=== PATIENT | male | born 1960 | race Caucasian/White ===

== ENCOUNTER 2019-01-31 08:06 | Emergency (ER) | payer OTHER ==
[~2019-01-31] VITALS: Ht 187 cm; Wt 91.0 kg
[2019-01-31] MEDS ORDERED: LIDOCAINE 1% INJ 20 ML 20 ML VIAL INJ ONE (09:00)
[2019-01-31] MEDS ORDERED: TETANUS,DIPTH,PERTUSS P/F (BOOSTRIX) 0.5 ML VIAL IM ONE (09:00)
[2019-01-31 09:14] VITALS: BP 127/96
--- NOTE | 2019-01-31 09:16 | ED General ---
General Chief Complaint: Laceration Stated Complaint: LEFT LEG LACERATION Nursing Triage Note: PT AMBULATED TO ROOM 3 PT HAS LAC TO L ANKLE AREA FROM SHARP KNIFE DROPPED AND HIT LEG. PT NOT UPD ON TETNAS Nursing Sepsis Screen: No Definite Risk Source of Information: Patient Exam Limitations: No Limitations History of Present Illness Date Seen by Provider: Jan 31, 2019 Time Seen by Provider: 08:34 Initial Comments This 58-year-old gentleman presents to the emergency room with a laceration injury to the left medial lower leg after dropping a knife. He is not up-to-date on his tetanus immunization. The wound extends into the subcutaneous tissue and is gaping mildly. He does not have significant bleeding at this time. Allergies and Home Medications Allergies Coded Allergies: No Known Drug Allergies (Unverified , 01/31/19) Patient Home Medication List Home Medication List Reviewed: Yes Review of Systems Review of Systems Constitutional: no symptoms reported Musculoskeletal: no symptoms reported Skin: see HPI Psychiatric/Neurological: No Symptoms Reported Past Stxgqkk-Gwxyek-Vaosxp Hx Past Med/Social Hx: Reviewed Nursing Past Med/Soc Hx Patient Social History Alcohol Use: Occasionally Uses Recreational Drug Use: No Smoking Status: Former Smoker Recent Foreign Travel: No Contact w/Someone Who Travel: No Recent Infectious Disease Expo: No Recent Hopitalizations: No Immunizations Up To Date Tetanus Booster (TDap): More than 5yrs Past Medical History Surgeries: Yes Abdominal, Orthopedic Respiratory: No Cardiac: Yes Hypertension Genitourinary: No Gastrointestinal: No Musculoskeletal: Yes (SURGERY ) Endocrine: No HEENT: No Cancer: No Psychosocial: No Physical Exam Vital Signs Vital Signs - First Documented 01/31/19 08:30 Temp 36.9 Pulse 76 Resp 18 B/P (MAP) 127/96 (106) Pulse Ox 94 Capillary Refill : Less Than 3 Seconds Height, Weight, BMI Height: '" Weight: lbs. oz. kg; 26.00 BMI Method: General Appearance: No Apparent Distress, WD/WN HEENT: Normal ENT Inspection Respiratory: Lungs Clear, Normal Breath Sounds Cardiovascular: Regular Rate, Rhythm, No Edema, No Murmur Extremity: Other (1.5 cm laceration on the medial aspect of the left lower leg. 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 as Tested Skin: Normal Color, Warm/Dry, Other (See above) Procedures/Interventions Wound Location: Lower Extremities Wound Length (cm): 1.5 Wound Explored: clean Irrigated w/ Saline (ccs): 300 Betadine Prep?: Yes Anesthesia: 1% Lidocaine Volume Anesthetic (ccs): 4 Suture: Prolene Suture Size: 4-0 Number of Sutures: 2 Sterile Dressing Applied?: Yes Progress/Results/Core Measures Suspected Sepsis Recent Fever Within 48 Hours: No Infection Criteria Present: None New/Unexplained Altered Menta: No Sepsis Screen: No Definite Risk SIRS Temperature: Pulse: 76 Respiratory Rate: 18 Blood Pressure 127 /96 Mean: 106 Results/Orders My Orders Orders - DUANE MARTINEZ MD Lidocaine 1% Inj 20 Ml (Xylocaine 1% Inj (01/31/19 09:00) Dipht,Pertuss(Acell),Tet Adult (Boostrix (01/31/19 09:00) Medications Given in ED Vital Signs/I&O Capillary Refill : Less Than 3 Seconds Blood Pressure Mean: 106 POS Departure Impression Primary Impression: Laceration of left leg Qualified Codes: S81.812A - Laceration without foreign body, left lower leg, initial encounter Disposition: 01 HOME, SELF-CARE Condition: Improved Departure-Patient Inst. Decision time for Depature: 09:00 Patient Instructions: Laceration Repair With Stitches (DC) Add. Discharge Instructions: Keep the wound covered when you're active or in dirty environments. Otherwise, you may leave it open to air. You may remove the dressing when you return home and elevate your leg. If bleeding occurs, apply direct pressure with gauze and elevate for about 15 m inutes. You may shower but do not scrub directly over the sutures and do not submerge until sutures are removed. Return in about 7 days to have sutures removed. You do not need an appointment. Monitor for signs of infection such as increasing redness, increasing swelling, puslike drainage, or fever. All discharge instructions reviewed with patient and/or family. Voiced understa nding. DUANE MARTINEZ MD Jan 31, 2019 09:16 POS
== END 2019-01-31 09:14 | disposition home or self-care (01) ==
LOC: ER 08:08
DX: S81.812A Laceration without foreign body, left lower leg, initial encounter (principal); I10 Essential (primary) hypertension; Z87.891 Personal history of nicotine dependence; W26.0XXA Contact with knife, initial encounter
CPT/HCPCS: 12001; 90471; 90715

== ENCOUNTER 2019-12-17 15:28 | Emergency (ER) | payer OTHER ==
[~2019-12-17] VITALS: Ht 187 cm; Wt 90.0 kg
--- NOTE | 2019-12-17 15:48 | ED Upper Extremity ---
General Chief Complaint: Upper Extremity Stated Complaint: FALL - R WRIST PAIN Source: patient Exam Limitations: no limitations History of Present Illness Date Seen by Provider: Dec 17, 2019 Time Seen by Provider: 15:47 Initial Comments Healthy 58 yo male who presented for right wrist pain after falling in his home last night around 2200. States he tripped. fell against the wall and landed forward on the carpet. Had immediate pain at his right distal radius. Applied ice with minimal relief. No pharmacological management taken prior to ED arrival. Currently, rates his pain 6 out of 10 at this time, sharp, worse with movement. Denies any loss of sensation or motor function. No other injuries reported. Location Injury Occurred: right wrist Onset: yesterday Severity: mild Pain/Injury Location: right wrist Method of Injury: fell Modifying Factors: Improves With Cold Therapy, Improves With Immobilization; Worse With Jarring, Worse With Movement Allergies and Home Medications Allergies Coded Allergies: No Known Drug Allergies (Unverified , 01/31/19) Home Medications Hydrocodone/Acetaminophen 1 Each Tablet, 1 EACH PO Q6H PRN for PAIN-BREAKTHROUGH Prescribed by: SANDRA MATSON on 12/17/19 8255 Patient Home Medication List Home Medication List Reviewed: Yes Review of Systems Constitutional: no symptoms reported EENTM: no symptoms reported Respiratory: no symptoms reported Cardiovascular: no symptoms reported Gastrointestinal: no symptoms reported Genitourinary: no symptoms reported Musculoskeletal: see HPI Skin: no symptoms reported Psychiatric/Neurological: No Symptoms Reported Past Hegfqpn-Yfkvlt-Akasae Hx Patient Social History Recent Foreign Travel: No Contact w/Someone Who Travel: No Recent Hopitalizations: No Immunizations Up To Date Tetanus Booster (TDap): More than 5yrs Past Medical History Surgeries: Yes Abdominal, Orthopedic Respiratory: No Cardiac: Yes Hypertension Genitourinary: No Gastrointestinal: No Musculoskeletal: Yes (SURGERY ) Endocrine: No HEENT: No Cancer: No Psychosocial: No Physical Exam Vital Signs Vital Signs - First Documented 12/17/19 15:31 Temp 36.0 Pulse 58 Resp 18 B/P (MAP) 138/75 (96) Pulse Ox 94 O2 Delivery Room Air Capillary Refill : Height, Weight, BMI Height: '" Weight: lbs. oz. kg; 26.00 BMI Method: General Appearance: WD/WN, no apparent distress HEENT: PERRL/EOMI, pharynx normal Neck: non-tender, full range of motion, supple, normal inspection Cardiovascular: regular rate, rhythm, no edema Respiratory: chest non-tender, lungs clear, normal breath sounds, no respiratory distress Gastrointestinal: normal bowel sounds, non tender, soft Wrist: Yes bone tenderness, Yes deformity, Yes soft tissue tenderness, Yes swelling Hand: normal inspection, normal ROM Neurologic/Tendon: normal sensation, normal motor functions, normal tendon functions Neurologic/Psychiatric: alert, normal mood/affect, oriented x 3 Skin: normal color, warm/dry Procedures/Interventions Suture Size: 4-0 Progress/Results/Core Measures Results/Orders My Orders Orders - SANDRA MATSON APRN Wrist, Right, 2 Views (12/17/19 15:36) Vital Signs/I&O 12/17/19 12/17/19 15:31 17:30 Temp 36.0 Pulse 58 62 Resp 18 18 B/P (MAP) 138/75 (96) 141/74 Pulse Ox 94 99 O2 Delivery Room Air Room Air Departure Impression Primary Impression: Fracture of radius and ulna Disposition: HOME, SELF-CARE Condition: Improved Departure-Patient Inst. Decision time for Depature: 17:19 Referrals: NO,LOCAL PHYSICIAN (PCP) Primary Care Physician Patient Instructions: Radius Fracture (DC) Add. Discharge Instructions: Plan: 1. Discharge home. 2. May take Tylenol as needed for pain per package instructions. May take Hydrocodone as needed for breakthrough pain every six hours. 3. Follow up with orthopedic provider of your choice next week. 4. Keep extremity elevated above your heart for the next 48-72 hours to reduce swelling. 5. Monitor for any changes in color and sensation of your fingers. Return to ED if you experience any color changes or loss of sensation. 6. Do not get splint wet, keep as dry as possible. May cover with bag or Saran wrap to shower. 7. Return for any new or concerning symptoms. All discharge instructions reviewed with patient and/or family. Voiced understanding. Scripts Hydrocodone/Acetaminophen (Hydrocodone-Acetamin 5-325 mg) 1 Each Tablet 1 EACH PO Q6H PRN for PAIN-BREAKTHROUGH, #20 TAB 0 Refills Prov: SANDRA MATSON APRN 12/17/19 SANDRA MATSON APRN Dec 17, 2019 15:48
--- NOTE | 2019-12-17 16:41 | Diagnostic Imaging Report ---
INDICATION: Wrist pain. EXAMINATION: Right wrist at 3:52 p.m. AP and lateral views were obtained. COMPARISON: There is no prior study available for comparison. FINDINGS: There is a mildly impacted essentially nondisplaced fracture of the distal radial metaphysis. There may also be a nondisplaced fracture of the base of the ulnar styloid. No other fracture or acute bony abnormality is identified. There is mild degenerative disease of the radiocarpal joint. The soft tissues are unremarkable. IMPRESSION: There is a mildly impacted essentially nondisplaced fracture of the distal radial metaphysis. There may also be a nondisplaced fracture at the base of the ulnar styloid. There is no acute bony abnormality noted otherwise. Dictated by: Dictated on workstation # [id number]
[2019-12-17] MEDS ORDERED: ACHD5005 PO (17:25)
[2019-12-17 17:30] VITALS: BP 141/74
--- NOTE | 2019-12-17 17:30 | NUR ---
PT DISCHARGED TO HOME W/ RX ET INSTR. PT TO F/U W/ PCP ET ORTHO OF CHOICE, RETURN IF SYMPTOMS CHANGE OR GET WORSE. UNDERSTANDING VOICED, NO QUESTIONS.
== END 2019-12-17 17:30 | disposition home or self-care (01) ==
LOC: ER 15:28 → EDUNIT# 15:28 → ER 17:30
DX: S52.614A Nondisplaced fracture of right ulna styloid process, initial encounter for closed fracture (principal); S52.391A Other fracture of shaft of radius, right arm, initial encounter for closed fracture; W01.0XXA Fall on same level from slipping, tripping and stumbling without subsequent striking against object, initial encounter
CPT/HCPCS: 29105; 73100

== ENCOUNTER 2019-12-19 13:12 | Emergency (ER) | payer OTHER ==
[~2019-12-19] VITALS: Ht 187.9 cm; Wt 90.0 kg
[~2019-12-19 13:12] MED LIST: ACHD5005 PO
[2019-12-19 13:16] VITALS: BP 163/103
--- NOTE | 2019-12-19 13:29 | ED General ---
General Chief Complaint: General Problems/Pain Stated Complaint: CASTED HAND TURNING BLACK History of Present Illness Date Seen by Provider: Dec 19, 2019 Time Seen by Provider: 13:20 Initial Comments 59-year-old male seen for swelling and bruising to his right hand. He was evaluated and treated here 2 days ago for a distal radius and ulnar styloid fracture. He has been wearing his splint and trying to elevate. He has not been applying ice to his wrist. He uses a sling at times. He is waiting to hear back from the [facility] for an orthopedic evaluation. He denies any numbness or tingling in his right upper extremity. He had nausea with the hydrocodone so has not been using it for pain. Timing/Duration: 4-6 Hours Associated Systoms: Denies Symptoms Allergies and Home Medications Allergies Coded Allergies: No Known Drug Allergies (Unverified , 01/31/19) Home Medications Hydrocodone/Acetaminophen 1 Each Tablet, 1 EACH PO Q6H PRN for PAIN-BREAKTHROUGH Prescribed by: SANDRA MATSON on 12/17/19 9464 Patient Home Medication List Home Medication List Reviewed: Yes Review of Systems Review of Systems Constitutional: no symptoms reported, see HPI Musculoskeletal: see HPI, joint pain (right wrist), other (swelling right hand) All Other Systems Reviewed Negative Unless Noted: Yes Past Akoavtz-Gfxkjv-Iawfvy Hx Past Med/Social Hx: Reviewed Nursing Past Med/Soc Hx Patient Social History Drug of Choice: MARIJUANA Recent Foreign Travel: No Contact w/Someone Who Travel: No Recent Hopitalizations: No Immunizations Up To Date Tetanus Booster (TDap): More than 5yrs Past Medical History Surgeries: Yes Abdominal, Orthopedic Respiratory: No Cardiac: Yes Hypertension Genitourinary: No Gastrointestinal: No Musculoskeletal: Yes (SURGERY ) Endocrine: No HEENT: No Cancer: No Psychosocial: No Physical Exam Vital Signs Capillary Refill : Height, Weight, BMI Height: '" Weight: lbs. oz. kg; 25.00 BMI Method: General Appearance: No Apparent Distress, WD/WN Respiratory: Chest Non Tender, Lungs Clear, Normal Breath Sounds Cardiovascular: Regular Rate, Rhythm, Normal Peripheral Pulses Extremity: Normal Capillary Refill, Swelling (right hand, full range of motion to right fingers. Brisk capillary refill. Neurovascular status intact right up per extremity.) Neurologic/Psychiatric: Alert, Oriented x3, No Motor/Sensory Deficits, Normal Mood/Affect Skin: Normal Color, Warm/Dry, Ecchymosis (trace noted over right MCPs) Comments Soft roll and cast stockinette removed, splint reapplied with Jayesh wrap, secured loser. Patient continues to have full ROM to right fingers, N-V status intact Procedures/Interventions Suture Size: 4-0 Progress/Results/Core Measures Suspected Sepsis SIRS Temperature: Pulse: Respiratory Rate: Blood Pressure / Mean: Results/Orders Vital Signs/I&O Capillary Refill : Departure Impression Primary Impression: Fracture of right wrist Qualified Codes: S62.101D - Fracture of unspecified carpal bone, right wrist, subsequent encounter for fracture with routine healing Additional Impression: Swelling of right upper extremity Disposition: HOME, SELF-CARE Condition: Improved Departure-Patient Inst. Decision time for Depature: 13:20 Referrals: NO,LOCAL PHYSICIAN (PCP/Family) Primary Care Physician Patient Instructions: Fracture (DC), Splint Care Add. Discharge Instructions: Ice to right wrist 20 minutes every 2 hours while awake. Elevate right wrist higher than your heart for 20 minutes every hour. Discontinue the hydrocodone isn't causing side effects. You may alternate between Tylenol 650 mg and ibuprofen 600 mg for pain. Leave your splint on, you may remove the Jayesh wrap and loosen the splint if swelling becomes worse. Return to the emergency department for new, urgent health care needs. All discharge instructions reviewed with patient and/or family. Voiced understanding. СЕРГЕЙ MAC Dec 19, 2019 13:28
== END 2019-12-19 13:31 | disposition home or self-care (01) ==
LOC: EDUNIT# 13:12 → ER 13:15
DX: S52.514A Nondisplaced fracture of right radial styloid process, initial encounter for closed fracture (principal); X58.XXXA Exposure to other specified factors, initial encounter
CPT/HCPCS: 99281

== ENCOUNTER → 2020-06-06 | Outpatient (CLI) | payer OTHER ==
[2020-06-06 13:31] LABS: BASOPHILS # (AUTO) 0.1 10^3/uL (0.0-0.1); BASOPHILS % (AUTO) 1 % (0-10); EOSINOPHILS # (AUTO) 0.2 10^3/uL (0.0-0.3); EOSINOPHILS % (AUTO) 4 % (0-10); HEMATOCRIT 46 % (40-54); HEMOGLOBIN 15.1 g/dL (13.3-17.7); LYMPHOCYTES # (AUTO) 2.1 10^3/uL (1.0-4.0); LYMPHOCYTES % (AUTO) 31 % (12-44); MEAN CORPUSCULAR HEMOGLOBIN 32 pg (25-34); MEAN CORPUSCULAR HGB CONC 33 g/dL (32-36); MEAN CORPUSCULAR VOLUME 97 fL (80-99); MONOCYTES # (AUTO) 0.7 10^3/uL (0.0-1.0); MONOCYTES % (AUTO) 10 % (0-12); NEUTROPHILS # (AUTO) 3.8 10^3/uL (1.8-7.8); NEUTROPHILS % (AUTO) 54 % (42-75); PLATELET COUNT 198 10^3/uL (130-400); WHITE BLOOD COUNT 6.9 10^3/uL (4.3-11.0)
[2020-06-06 13:46] LABS: BUN/CREATININE RATIO 17; CALCIUM 9.3 MG/DL (8.5-10.1); CARBON DIOXIDE 26 MMOL/L (21-32); CHLORIDE 107 MMOL/L (98-107); CREATININE SERUM 0.82 MG/DL (0.60-1.30); GFR ESTIMATED > 60; GLUCOSE 86 MG/DL (70-105); POTASSIUM 3.8 MMOL/L (3.6-5.0); SODIUM 143 MMOL/L (135-145)
== END ==
LOC: LAB 13:14
PROVIDERS: ATTEND Orthopaedic Surgery
DX: Z01.812 Encounter for preprocedural laboratory examination (principal); S62.101D Fracture of unspecified carpal bone, right wrist, subsequent encounter for fracture with routine healing; X58.XXXD Exposure to other specified factors, subsequent encounter
CPT/HCPCS: 36415; 80048; 85025

== ENCOUNTER → 2020-06-11 | Outpatient (CLI) | payer OTHER | LOC: LABNPT 07:49 | PROVIDERS: ATTEND Orthopaedic Surgery | DX: Z20.822 Contact with and (suspected) exposure to COVID-19 (principal) ==

== ENCOUNTER 2020-09-12 07:45 | Emergency (ER) | payer OTHER ==
[~2020-09-12] VITALS: Ht 187 cm; Wt 104.0 kg
[2020-09-12] MEDS ORDERED: LORazepam INJ 2 MG/ML (ATIVAN) VIAL IVP ONE ×3 (08:00→14:00)
[2020-09-12] MEDS ORDERED: FAMOTIDINE 20MG/2ML IV (PEPCID) IV STA (08:02)
[2020-09-12 08:10] LABS: BASOPHILS # (AUTO) 0.1 10^3/uL (0.0-0.1); BASOPHILS % (AUTO) 1 % (0-10); EOSINOPHILS % (AUTO) 0 % (0-10); HEMATOCRIT 43 % (40-54); HEMOGLOBIN 14.6 g/dL (13.3-17.7); LYMPHOCYTES # (AUTO) 2.6 10^3/uL (1.0-4.0); LYMPHOCYTES % (AUTO) 39 % (12-44); MEAN CORPUSCULAR HEMOGLOBIN 33 pg (25-34); MEAN CORPUSCULAR HGB CONC 34 g/dL (32-36); MEAN CORPUSCULAR VOLUME 96 fL (80-99); MEAN PLATELET VOLUME 8.7 fL (9.0-12.2); MONOCYTES # (AUTO) 0.6 10^3/uL (0.0-1.0); MONOCYTES % (AUTO) 9 % (0-12); NEUTROPHILS # (AUTO) 3.4 10^3/uL (1.8-7.8); NEUTROPHILS % (AUTO) 51 % (42-75); PLATELET COUNT 141 10^3/uL (130-400); WHITE BLOOD COUNT 6.7 10^3/uL (4.3-11.0)
[2020-09-12] MEDS ORDERED: PANTOPRAZOLE 40 MG (PROTONIX) VIAL IV ONE (08:15)
[2020-09-12 08:22] LABS: INR 0.8 (0.8-1.4); PROTHROMBIN TIME PATIENT 11.9 SEC (12.2-14.7)
[2020-09-12 08:23] LABS: ALBUMIN 4.6 GM/DL (3.2-4.5)
[2020-09-12 08:24] LABS: CHLORIDE 100 MMOL/L (98-107); POTASSIUM 3.7 MMOL/L (3.6-5.0); SODIUM 142 MMOL/L (135-145)
[2020-09-12 08:25] LABS: AMYLASE 93 U/L (25-125); CALCIUM 8.8 MG/DL (8.5-10.1)
[2020-09-12 08:26] LABS: GLUCOSE 66 MG/DL (70-105); TOTAL PROTEIN 7.6 GM/DL (6.4-8.2)
[2020-09-12 08:27] LABS: CARBON DIOXIDE 17 MMOL/L (21-32)
[2020-09-12 08:28] LABS: BILIRUBIN,TOTAL 1.3 MG/DL (0.1-1.0)
[2020-09-12 08:29] LABS: ALKALINE PHOSPHATASE 64 U/L (40-136)
[2020-09-12 08:30] LABS: CREATININE SERUM 0.83 MG/DL (0.60-1.30); GFR ESTIMATED > 60
[2020-09-12 08:31] LABS: BUN/CREATININE RATIO 12
[2020-09-12 08:33] LABS: ALANINE AMINOTRANSFERASE 110 U/L (0-55); MAGNESIUM 1.9 MG/DL (1.6-2.4)
[2020-09-12 08:34] LABS: LIPASE 14 U/L (8-78)
--- NOTE | 2020-09-12 08:37 | ED Cough/URI ---
General Chief Complaint: Abdominal/GI Problems Stated Complaint: CP, SOB Nursing Triage Note: PT TO TRIAGE CO OF SEVERE ABD PAIN 4/10 IN EPIGASTRIC AREA. PT IS HYPERVENTILATING. PT STATES IS AN ALCOHOLIC AND WANTS TO LIVE. PT STATES LAST DRINK BURBON A COUPLE HOURS AGO. PT STATES DRINKS 2 PINTS BURBON DAILY AND SMOKES A BOWL OF POT TWICE DAILY. Source: patient Exam Limitations: no limitations History of Present Illness Date Seen by Provider: Sep 12, 2020 Time Seen by Provider: 07:47 Initial Comments Arrives quite anxious complaining of vomiting and/or retching. Reports that he is an alcoholic and drinks 2 pints per day. He buys 2 pints per day of bourbon and only that amount so he does not drink more. He states he would drink more if he had more. States he wants to quit. He is a patient of the [facility] [place] and [facility]. Denies change in color of stools. Denies bloody vomitus. Denies breathing problems. Does have pain in his chest but states it starts from the epigastric region and moves up and down from there. States he does not want to . No recent fever or chills. Has not had Covid vaccination because he does not trust the government although was amiable after further discussion with him. Has not had any recent illnesses and does not know of any exposure to COVID-19. Timing/Duration: yesterday Allergies and Home Medications Allergies Coded Allergies: No Known Drug Allergies (Unverified , 01/31/19) Home Medications Hydrocodone/Acetaminophen 1 Each Tablet, 1 EACH PO Q6H PRN for PAIN-BREAKTHROUGH Prescribed by: SANDRA MATSON on 12/17/19 0357 Patient Home Medication List Home Medication List Reviewed: Yes Review of Systems Review of Systems Constitutional: No chills, No fever EENTM: No nose congestion, No throat pain Respiratory: cough (Intermittent occasional); No short of breath Cardiovascular: chest pain (Epigastric pain that radiates up to the chest and down to the abdomen that he states is sharp and intermittent. This has been going on since last evening at least. Is associated with retching. Moderate in intensity when it is occurring.); No edema Gastrointestinal: abdominal pain, nausea, vomiting Genitourinary: no symptoms reported Musculoskeletal: No back pain, No muscle pain Skin: no symptoms reported Psychiatric/Neurological: Anxiety, Emotional Problems All Other Systems Reviewed Negative Unless Noted: Yes Past Isyrtnv-[id number]-Aipqcw Hx Patient Social History Tobacco Use?: No Substance use?: Yes Substance type: Marijuana Alcohol Use?: Yes Alcohol type: Hard Liquor Alcohol Frequency: Daily Immunizations Up To Date Tetanus Booster (TDap): More than 5yrs Past Medical History Surgeries: Yes Abdominal, Orthopedic Respiratory: No Cardiac: Yes Hypertension Genitourinary: No Gastrointestinal: No Musculoskeletal: Yes (SURGERY ) Endocrine: No HEENT: No Cancer: No Psychosocial: No Family Medical History Reviewed Nursing Family Hx No Pertinent Family Hx Physical Exam Vital Signs - First Documented 09/12/20 09/12/20 07:45 08:25 Temp 36.2 Pulse 70 Resp 28 B/P (MAP) 169/93 (118) Pulse Ox 95 O2 Delivery Nasal Cannula O2 Flow Rate 2.00 Capillary Refill : Less Than 3 Seconds Height: '" Weight: lbs. oz. kg; 29.00 BMI Method: General Appearance: WD/WN, no apparent distress HEENT: PERRL/EOMI, pharynx normal Neck: full range of motion, supple Respiratory: lungs clear, normal breath sounds Cardiovascular: regular rate, rhythm, no murmur Gastrointestinal: soft, tenderness (Epigastric) Extremities: non-tender, normal inspection Neurologic/Psychiatric: alert, oriented x 3 Skin: normal color, warm/dry Procedures/Interventions Suture Size: 4-0 Progress/Results/Core Measures Suspected Sepsis SIRS Temperature: Pulse: 70 Respiratory Rate: 28 Laboratory Tests 09/12/20 08:00: White Blood Count 6.7 Blood Pressure 169 /93 Mean: 118 Laboratory Tests 09/12/20 08:00: Creatinine 0.83, INR Comment 0.8, Platelet Count 141, Total Bilirubin 1.3H Results/Orders Lab Results Laboratory Tests Test 09/12/20 08:00 09/12/20 08:02 09/12/20 09:00 Range/Units White Blood Count 6.7 4.3-11.0 10^3/uL Red Blood Count 4.48 4.30-5.52 10^6/uL Hemoglobin 14.6 13.3-17.7 g/dL Hematocrit 43 40-54 % Mean Corpuscular Volume 96 80-99 fL Mean Corpuscular Hemoglobin 33 25-34 pg Mean Corpuscular Hemoglobin Concent 34 32-36 g/dL Red Cell Distribution Width 15.9 H 10.0-14.5 % Platelet Count 141 130-400 10^3/uL Mean Platelet Volume 8.7 L 9.0-12.2 fL Immature Granulocyte % (Auto) 0 % Neutrophils (%) (Auto) 51 42-75 % Lymphocytes (%) (Auto) 39 12-44 % Monocytes (%) (Auto) 9 0-12 % Eosinophils (%) (Auto) 0 0-10 % Basophils (%) (Auto) 1 0-10 % Neutrophils # (Auto) 3.4 1.8-7.8 10^3/uL Lymphocytes # (Auto) 2.6 1.0-4.0 10^3/uL Monocytes # (Auto) 0.6 0.0-1.0 10^3/uL Eosinophils # (Auto) 0.0 0.0-0.3 10^3/uL Basophils # (Auto) 0.1 0.0-0.1 10^3/uL Immature Granulocyte # (Auto) 0.0 0.0-0.1 10^3/uL Prothrombin Time 11.9 L 12.2-14.7 SEC INR Comment 0.8 0.8-1.4 Activated Partial Thromboplast Time 26 24-35 SEC Sodium Level 142 135-145 MMOL/L Potassium Level 3.7 3.6-5.0 MMOL/L Chloride Level 100 98-107 MMOL/L Carbon Dioxide Level 17 L 21-32 MMOL/L Anion Gap 25 H 5-14 MMOL/L Blood Urea Nitrogen 10 7-18 MG/DL Creatinine 0.83 0.60-1.30 MG/DL Estimat Glomerular Filtration Rate > 60 BUN/Creatinine Ratio 12 Glucose Level 66 L 70-105 MG/DL Calcium Level 8.8 8.5-10.1 MG/DL Corrected Calcium 8.5-10.1 MG/DL Magnesium Level 1.9 1.6-2.4 MG/DL Total Bilirubin 1.3 H 0.1-1.0 MG/DL Aspartate Amino Transf (AST/SGOT) 134 H 5-34 U/L Alanine Aminotransferase (ALT/SGPT) 110 H 0-55 U/L Alkaline Phosphatase 64 40-136 U/L Myoglobin 84.7 10.0-92.0 NG/ML Troponin I < 0.028 <0.028 NG/ML Total Protein 7.6 6.4-8.2 GM/DL Albumin 4.6 H 3.2-4.5 GM/DL Amylase Level 93 25-125 U/L Lipase 14 8-78 U/L Salicylates Level < 5.0 L 5.0-20.0 MG/DL Acetaminophen Level < 10 L 10-30 UG/ML Serum Alcohol 256 H <10 MG/DL SARS-CoV-2 RNA (RT-PCR) Not Detected Not Detecte Urine Color YELLOW Urine Clarity CLEAR Urine pH 5.5 5-9 Urine Specific [place] 1.010 L 1.016-1.022 Urine Protein NEGATIVE NEGATIVE Urine Glucose (UA) NEGATIVE NEGATIVE Urine Ketones 2+ H NEGATIVE Urine Nitrite NEGATIVE NEGATIVE Urine Bilirubin NEGATIVE NEGATIVE Urine Urobilinogen 0.2 < = 1.0 MG/DL Urine Leukocyte Esterase NEGATIVE NEGATIVE Urine RBC (Auto) 1+ H NEGATIVE Urine RBC RARE /HPF Urine WBC RARE /HPF Urine Squamous Epithelial Cells RARE /HPF Urine Crystals NONE /LPF Urine Bacteria NEGATIVE /HPF Urine Casts NONE /LPF Urine Mucus NEGATIVE /LPF Urine Culture Indicated NO Urine Opiates Screen NEGATIVE NEGATIVE Urine Oxycodone Screen NEGATIVE NEGATIVE Urine Methadone Screen NEGATIVE NEGATIVE Urine Propoxyphene Screen NEGATIVE NEGATIVE Urine Barbiturates Screen NEGATIVE NEGATIVE Ur Tricyclic Antidepressants Screen NEGATIVE NEGATIVE Urine Phencyclidine Screen NEGATIVE NEGATIVE Urine Amphetamines Screen NEGATIVE NEGATIVE Urine Methamphetamines Screen NEGATIVE NEGATIVE Urine Benzodiazepines Screen NEGATIVE NEGATIVE Urine Cocaine Screen NEGATIVE NEGATIVE Urine Cannabinoids Screen POSITIVE H NEGATIVE My Orders Orders - KENNY SUTTON MD Cbc With Automated Diff (09/12/20 07:59) Magnesium (09/12/20 07:59) Chest 1 View, Ap/Pa Only (09/12/20 07:59) Ekg Tracing (09/12/20 07:59) Comprehensive Metabolic Panel (09/12/20 07:59) Myoglobin Serum (09/12/20 07:59) Protime With Inr (09/12/20 07:59) Partial Thromboplastin Time (09/12/20 07:59) O2 (09/12/20 07:59) Monitor-Rhythm Ecg Trace Only (09/12/20 07:59) Lipid Panel (09/13/20 06:00) Ed Iv/Invasive Line Start (09/12/20 07:59) Lipase (09/12/20 07:59) Amylase (09/12/20 07:59) Troponin I (09/12/20 07:59) Lorazepam Injection (Ativan Injection) (09/12/20 08:00) Pantoprazole Injection (Protonix Injecti (09/12/20 08:15) Famotidine Injection (Pepcid Injection) (09/12/20 08:02) Covid 19 Inhouse Test (09/12/20 08:03) Acetaminophen (09/12/20 08:51) Alcohol (09/12/20 08:51) Drug Screen Stat (Urine) (09/12/20 08:51) Salicylate (09/12/20 08:51) Ua Culture If Indicated (09/12/20 08:51) Ns Iv 1000 Ml (Sodium Chloride 0.9%) (09/12/20 10:15) Ondansetron Injection (Zofran Injectio (09/12/20 10:15) Lorazepam Injection (Ativan Injection) (09/12/20 10:15) Ondansetron Injection (Zofran Injectio (09/12/20 13:45) Lorazepam Injection (Ativan Injection) (09/12/20 14:00) Lorazepam Injection (Ativan Injection) (09/12/20 13:49) Medications Given in ED Current Medications Medications Dose Ordered Sig/Elsy Route Start Time Stop Time Status Last Admin Dose Admin Lorazepam 1 mg ONCE ONCE IVP 09/12/20 08:00 09/12/20 08:05 DC 09/12/20 08:08 1 MG Lorazepam 1 mg ONCE ONCE IVP 09/12/20 10:15 09/12/20 10:16 DC 09/12/20 10:16 1 MG Lorazepam 1 mg ONCE ONCE IVP 09/12/20 14:00 09/12/20 14:01 DC 09/12/20 13:51 1 MG Ondansetron HCl 4 mg ONCE ONCE IVP 09/12/20 10:15 09/12/20 10:16 DC 09/12/20 10:16 4 MG Ondansetron HCl 4 mg ONCE ONCE IVP 09/12/20 13:45 09/12/20 13:46 DC 09/12/20 13:51 4 MG Pantoprazole 40 mg ONCE ONCE IV 09/12/20 08:15 09/12/20 08:16 DC 09/12/20 08:08 40 MG Sodium Chloride 1,000 ml @ 0 mls/hr Q0M ONCE IV 09/12/20 10:15 09/12/20 10:16 DC 09/12/20 10:17 1,000 MLS/HR Vital Signs/I&O 09/12/20 09/12/20 07:45 08:25 Temp 36.2 Pulse 70 Resp 28 B/P (MAP) 169/93 (118) Pulse Ox 95 94 O2 Delivery Nasal Cannula O2 Flow Rate 2.00 Capillary Refill : Less Than 3 Seconds Blood Pressure Mean: 118 Progress Note : Progress Note Seen and evaluated. IV, labs, EKG and chest x-ray. Patient had initially complained of chest pain but then was later determined to be more epigastric with radiation. He is an alcoholic and has had quite a bit of retching. We have held aspirin currently as this seems to be more GI related and there is concerns of bleeding secondary to significant alcohol abuse. Pepcid 20 mg IV, Protonix 40 mg IV and and Ativan 1 mg IV ordered. Monitor patient. 0850: I have added substance abuse labs and those are pending. Monitor patient. 1025: Patient required repeat dose of Ativan as well as Zofran for persistent nausea and vomiting and anxiety. I have initiated transfer proceedings with the [place] [facility] which is his normal center. CBC normal at this point with mild elevation of liver enzymes and alcohol elevated. Patient will need inpatient management of his alcohol abuse and further work-up for gastritis but this can be [facility] We will continue to work through the alcohol withdrawal portion. Normal saline 1 L bolus ordered as he d oes have ketones in the urine which I think is related to alcohol ketosis and dehydration. Patient does consent [facility] and would like to do that. Monitor patient. 1325: I did speak with Dr. Rey at the [facility] in [facility] in the emergency department and she is excepted patient for transfer there. They will work on transportation. Patient informed and agrees. Monitor patient pending transfer. 1545: Report given to EMS. Patient did require 1 more milligram of Ativan shortly after last call. He is doing okay currently. Orders given for Ativan 1 mg IV every hour as needed and Zofran 4 mg IV as needed x1. EMS to transport. ECG Initial ECG Impression Date: Sep 12, 2020 Initial ECG Impression Time: 07:50 Initial ECG Rate: 63 Initial ECG Rhythm: Normal Sinus Comment Sinus rhythm with left axis deviation and prolonged MO interval. Interventr icular conduction delay noted. No evidence of ST elevation CO. No previous available for comparison. Interpreted by me. Diagnostic Imaging Diagonstic Imaging: Xray Plain Films/CT/US/NM/MRI: chest Comments [facility] [place], [place] NAME: GENE JACOBS [facility] REC#: [id number] PT STATUS: REG ER : 1960 PHYSICIAN: KENNY SUTTON MD ADMIT DATE: 09/12/20/ER Draft Date of Exam:09/12/20 CHEST 1 VIEW, AP/PA ONLY Indication: Severe abdominal pain. Time of exam 8:44 AM No prior studies are available for comparison. Heart size normal. Left hemidiaphragm is mildly elevated. Lungs are clear. No infiltrates are seen. There is no effusion or pneumothorax. IMPRESSION: No acute cardiopulmonary process is detected. Dictated on workstation # [id number] Dict: 09/12/20 0853 Trans: 09/12/20 0856 [facility] [id number] Interpreted by: KIMMY PIZARRO MD Electronically signed by: Departure Impression Primary Impression: Alcohol abuse with withdrawal Additional Impressions: Nausea and vomiting Qualified Codes: R11.2 - Nausea with vomiting, unspecified Epigastric pain Disposition: XFER SHT-TRM HOSP Condition: Stable Transfer Transfer Reason: Patient preference ([facility] patient) Time Spoke to Accepting Phy: 13:[address] Rey, [facility], emergency department physician accepting. Transfer Time: 15:45 Method of Transfer: EMS Departure-Patient Inst. Referrals: NO,LOCAL PHYSICIAN (PCP/Family) Primary Care Physician KENNY SUTTON MD Sep 12, 2020 08:37
--- NOTE | 2020-09-12 08:56 | Diagnostic Imaging Report ---
Indication: Severe abdominal pain. Time of exam 8:44 AM No prior studies are available for comparison. Heart size normal. Left hemidiaphragm is mildly elevated. Lungs are clear. No infiltrates are seen. There is no effusion or pneumothorax. IMPRESSION: No acute cardiopulmonary process is detected. Dictated by: Dictated on workstation # [id number]
[2020-09-12 09:10] LABS: BILIRUBIN,URINE NEGATIVE (NEGATIVE); CLARITY,URINE CLEAR; COLOR,URINE YELLOW; GLUCOSE, URINE (UA) NEGATIVE (NEGATIVE); KETONES,URINE 2+ (NEGATIVE); LEUKOCYTE ESTERASE ,URINE NEGATIVE (NEGATIVE); NITRITE,URINE NEGATIVE (NEGATIVE); PH,URINE 5.5 (5-9); PROTEIN,URINE NEGATIVE (NEGATIVE)
[2020-09-12 09:18] LABS: BACTERIA,URINE NEGATIVE /HPF; RBC,URINE RARE /HPF; SQUAMOUS EPITHELIAL CELL,UR RARE /HPF; WBC,URINE RARE /HPF
[2020-09-12 09:19] LABS: AMPHETAMINE SCREEN, URINE NEGATIVE (NEGATIVE); BARBITURATE SCREEN URINE NEGATIVE (NEGATIVE); BENZODIAZEPINES SCREEN URINE NEGATIVE (NEGATIVE); CANNABINOID SCREEN, URINE POSITIVE (NEGATIVE); COCAINE SCREEN URINE NEGATIVE (NEGATIVE); METHADONE STAT NEGATIVE (NEGATIVE); METHAMPHETAMINE SCREEN URINE S NEGATIVE (NEGATIVE); OPIATE SCREEN URINE NEGATIVE (NEGATIVE); OXYCODONE STAT NEGATIVE (NEGATIVE); PROPOXYPHENE STAT NEGATIVE (NEGATIVE); TRICYCLIC ANTIDEPRESSANTS SCRE NEGATIVE (NEGATIVE)
[2020-09-12 09:44] LABS: SALICYLATE < 5.0 MG/DL (5.0-20.0)
[2020-09-12 09:49] LABS: ACETAMINOPHEN < 10 UG/ML (10-30)
[2020-09-12] MEDS ORDERED: ONDANSETRON 4 MG/2 ML (SDV) Z0FRAN IVP ONE ×2 (10:15→13:45)
[2020-09-12] MEDS ORDERED: NS IV 1000 ML 1,000 ML IV ONE (10:15)
[2020-09-12] MEDS ORDERED: LORazepam INJ 2 MG/ML (ATIVAN) VIAL ONE (13:49)
[2020-09-12 15:42] VITALS: BP 130/80
== END 2020-09-12 15:46 | disposition short-term general hospital (02) ==
LOC: EDUNIT# 07:47 → ER 07:48
DX: F10.139 Alcohol abuse with withdrawal, unspecified (principal); R11.2 Nausea with vomiting, unspecified; R10.13 Epigastric pain; I10 Essential (primary) hypertension; Z20.822 Contact with and (suspected) exposure to COVID-19
CPT/HCPCS: 36415; 71045; 80053; 80306; 80320; 80329; 81000; 82150; 83690; 83735; 83874; 84484; 85025; 85610; 85730; 87636; 93005; 93041

== ENCOUNTER 2021-09-09 16:43 | Emergency (ER) | payer OTHER ==
--- NOTE | 2021-09-09 17:26 | ED General ---
General Chief Complaint: Substance Abuse Stated Complaint: ALCOHOL DETOX Nursing Triage Note: PT AMB TO FT 3 WITH C/O BEING INTOXICATED AND VOMITTING X2 DAYS. PT STATES HIS LAST DRINK WAS 30 MIN AGO Source of Information: Patient Exam Limitations: No Limitations History of Present Illness Date Seen by Provider: Sep 09, 2021 Time Seen by Provider: 17:24 Initial Comments Patient is a 60-year-old male with a history of alcohol abuse who presents ED for alcohol detox. States he relapsed 3 to 4 months ago. Has been drinking daily. reports 2 pints of liquor daily. Patient states she has felt sick over the past 2 days. Reports nausea, vomiting without any hematemesis with decreased appetite. He states he has not been feeling hungry or wanting to eat over the past 2 days. Denies of any tremoring, seizure-like activity, hallucinations, chest pain or abdominal pain. He states he had similar type symptoms a year ago was transferred to [facility] for detox. Patient is requesting detox at this time. Denies of any suicidal or homicidal thoughts. Allergies and Home Medications Allergies Coded Allergies: No Known Drug Allergies (Unverified , 01/31/19) Patient Home Medication List Home Medication List Reviewed: Yes Hydrocodone/Acetaminophen (Hydrocodone-Acetamin 5-325 mg) 1 Each Tablet, 1 EACH PO Q6H PRN for PAIN-BREAKTHROUGH Prescribed by: SANDRA MATSON on 12/17/19 172 Review of Systems Review of Systems Constitutional: No chills, No malaise, No weakness EENTM: No ear pain, No blurred vision, No double vision Respiratory: No cough, No dyspnea on exertion, No short of breath, No wheezing Cardiovascular: No chest pain, No edema Gastrointestinal: No abdominal pain, No diarrhea; nausea, vomiting Musculoskeletal: No back pain Skin: No change in hair/nails Psychiatric/Neurological: Denies Anxiety, Denies Depressed Past Vhqjcvg-Ggjujy-Yciiaa Hx Patient Social History Tobacco Use?: No Use of E-Cig and/or Vaping dev: No Substance use?: No Alcohol Use?: Yes Alcohol type: Hard Liquor Alcohol Frequency: Daily Pt feels they are or have been: No Immunizations Up To Date Tetanus Booster (TDap): More than 5yrs Influenza Vaccine Up-to-Date: No; Not Current Past Medical History Surgery/Hospitalization HX: alcohol abuse, htn, thyroid bowel rupture, colostormy/ reversal, back, ortho Surgeries: Yes Abdominal, Orthopedic Respiratory: No Cardiac: Yes Hypertension Genitourinary: No Gastrointestinal: No Musculoskeletal: Yes (SURGERY ) Endocrine: No HEENT: No Cancer: No Psychosocial: No Family Medical History No Pertinent Family Hx Physical Exam Vital Signs Vital Signs - First Documented 09/09/21 17:04 Temp 36.2 Pulse 106 Resp 16 B/P (MAP) 142/90 (107) Capillary Refill : Height, Weight, BMI Height: '" Weight: lbs. oz. kg; 29.00 BMI Method: General Appearance: No Apparent Distress, WD/WN Eyes: Bilateral Eye Normal Inspection, Bilateral Eye PERRL, Bilateral Eye EOMI HEENT: PERRL/EOMI, TMs Normal, Normal ENT Inspection, Pharynx Normal Neck: Full Range of Motion, Normal Inspection, Non Tender, Supple Respiratory: Chest Non Tender, Lungs Clear, Normal Breath Sounds, No Accessory Muscle Use Cardiovascular: Regular Rate, Rhythm, No Edema, No Gallop, No JVD Gastrointestinal: Normal Bowel Sounds, No Organomegaly, No Pulsatile Mass, Non Tender Back: Normal Inspection, No CVA Tenderness Neurologic/Psychiatric: Alert, Oriented x3, No Motor/Sensory Deficits, Normal Mood/Affect, collection supervisor II-XII Norm as Tested Skin: Normal Color, Warm/Dry Procedures/Interventions Suture Size: 4-0 Progress/Results/Core Measures Suspected Sepsis SIRS Temperature: Pulse: 106 Respiratory Rate: 16 Laboratory Tests 09/09/21 17:45: White Blood Count 6.9 Blood Pressure 142 /90 Mean: 107 Laboratory Tests 09/09/21 17:45: Creatinine 0.89, Platelet Count 127L, Total Bilirubin 1.6H Results/Orders Lab Results Laboratory Tests Test 09/09/21 17:38 09/09/21 17:45 09/09/21 18:10 09/09/21 19:40 Range/Units Influenza Type A (RT-PCR) Not Detected Not Detecte Influenza Type B (RT-PCR) Not Detected Not Detecte SARS-CoV-2 RNA (RT-PCR) Not Detected Not Detecte White Blood Count 6.9 4.3-11.0 10^3/uL Red Blood Count 4.22 L 4.30-5.52 10^6/uL Hemoglobin 14.6 13.3-17.7 g/dL Hematocrit 43 40-54 % Mean Corpuscular Volume 103 H 80-99 fL Mean Corpuscular Hemoglobin 35 H 25-34 pg Mean Corpuscular Hemoglobin Concent 34 32-36 g/dL Red Cell Distribution Width 14.0 10.0-14.5 % Platelet Count 127 L 130-400 10^3/uL Mean Platelet Volume 9.4 9.0-12.2 fL Immature Granulocyte % (Auto) 0 % Neutrophils (%) (Auto) 78 H 42-75 % Lymphocytes (%) (Auto) 14 12-44 % Monocytes (%) (Auto) 8 0-12 % Eosinophils (%) (Auto) 0 0-10 % Basophils (%) (Auto) 0 0-10 % Neutrophils # (Auto) 5.4 1.8-7.8 10^3/uL Lymphocytes # (Auto) 1.0 1.0-4.0 10^3/uL Monocytes # (Auto) 0.5 0.0-1.0 10^3/uL Eosinophils # (Auto) 0.0 0.0-0.3 10^3/uL Basophils # (Auto) 0.0 0.0-0.1 10^3/uL Immature Granulocyte # (Auto) 0.0 0.0-0.1 10^3/uL Percent Immature Platelet Fraction 3.5 0.0-7.6 % Sodium Level 138 135-145 MMOL/L Potassium Level 3.9 3.6-5.0 MMOL/L Chloride Level 90 L 98-107 MMOL/L Carbon Dioxide Level 13 L 21-32 MMOL/L Anion Gap 35 H 5-14 MMOL/L Blood Urea Nitrogen 10 7-18 MG/DL Creatinine 0.89 0.60-1.30 MG/DL Estimat Glomerular Filtration Rate 97 BUN/Creatinine Ratio 11 Glucose Level 78 70-105 MG/DL Calcium Level 10.3 H 8.5-10.1 MG/DL Corrected Calcium 8.5-10.1 MG/DL Magnesium Level 2.0 1.6-2.4 MG/DL Total Bilirubin 1.6 H 0.1-1.0 MG/DL Aspartate Amino Transf (AST/SGOT) 86 H 5-34 U/L Alanine Aminotransferase (ALT/SGPT) 70 H 0-55 U/L Alkaline Phosphatase 90 40-136 U/L Total Protein 8.2 6.4-8.2 GM/DL Albumin 4.8 H 3.2-4.5 GM/DL Lipase 60 8-78 U/L Beta-Hydroxybutyrate (Chem panel) 9.73 H 0.00-0.27 MMOL/L Salicylates Level < 5.0 L 5.0-20.0 MG/DL Acetaminophen Level < 10 L 10-30 UG/ML Serum Alcohol 122 H <10 MG/DL Urine Color YELLOW Urine Clarity CLEAR Urine pH 5.5 5-9 Urine Specific Tracy >=1.030 1.016-1.022 Urine Protein 1+ H NEGATIVE Urine Glucose (UA) NEGATIVE NEGATIVE Urine Ketones 3+ H NEGATIVE Urine Nitrite NEGATIVE NEGATIVE Urine Bilirubin 1+ H NEGATIVE Urine Urobilinogen 1.0 < = 1.0 MG/DL Urine Leukocyte Esterase NEGATIVE NEGATIVE Urine RBC (Auto) 1+ H NEGATIVE Urine RBC NONE /HPF Urine WBC 2-5 /HPF Urine Squamous Epithelial Cells NONE /HPF Urine Renal Epithelial Cells NONE /HPF Urine Crystals NONE /LPF Urine Bacteria FEW H /HPF Urine Casts PRESENT /LPF Urine Hyaline Casts 10-25 H /LPF Urine Mucus SMALL H /LPF Urine Culture Indicated NO Urine Opiates Screen NEGATIVE NEGATIVE Urine Oxycodone Screen NEGATIVE NEGATIVE Urine Methadone Screen NEGATIVE NEGATIVE Urine Propoxyphene Screen NEGATIVE NEGATIVE Urine Barbiturates Screen NEGATIVE NEGATIVE Ur Tricyclic Antidepressants Screen NEGATIVE NEGATIVE Urine Phencyclidine Screen NEGATIVE NEGATIVE Urine Amphetamines Screen NEGATIVE NEGATIVE Urine Methamphetamines Screen NEGATIVE NEGATIVE Urine Benzodiazepines Screen NEGATIVE NEGATIVE Urine Cocaine Screen NEGATIVE NEGATIVE Urine Cannabinoids Screen POSITIVE H NEGATIVE Blood Gas Puncture Site LEFT ARM Blood Gas Patient Temperature 37.0 Arterial Blood pH 7.31 *L 7.37-7.43 Arterial Blood Partial Pressure CO2 37 35-45 MMHG Arterial Blood Partial Pressure O2 55 L 79-93 MMHG Arterial Blood HCO3 18 L 23-27 MMOL/L Arterial Blood Total CO2 19.5 L 21.0-31.0 MMOL/L Arterial Blood Oxygen Saturation 80 L 94-100 % Arterial Blood Base Excess -6.7 L -2.5-2.5 MMOL/L Greg Test NA Blood Gas Ventilator Setting NO Blood Gas Inspired Oxygen UNK My Orders Orders - JAZMYNE WEBSTER Ua Culture If Indicated (09/09/21 17:22) Cbc With Automated Diff (09/09/21 17:22) Comprehensive Metabolic Panel (09/09/21 17:22) Alcohol (09/09/21 17:22) Drug Screen Stat (Urine) (09/09/21 17:22) Acetaminophen (09/09/21 17:22) Salicylate (09/09/21 17:22) Ekg Tracing (09/09/21 17:22) Ed Iv/Invasive Line Start (09/09/21 17:22) Monitor-Rhythm Ecg Trace Only (09/09/21 17:22) Ed Iv/Invasive Line Start (09/09/21 17:22) Ns Iv 1000 Ml (Sodium Chloride 0.9%) (09/09/21 17:30) Lipase (09/09/21 17:22) Magnesium (09/09/21 17:22) Lorazepam Injection (Ativan Injection) (09/09/21 17:30) Ondansetron Injection (Zofran Injectio (09/09/21 17:45) Covid 19 Inhouse Test (09/09/21 18:17) Influenza A And B By Pcr (09/09/21 18:17) Beta Hydroxybutyrate (09/09/21 19:01) Arterial Blood Gas (09/09/21 19:33) Promethazine Injection (Phenergan Injec (09/09/21 20:15) Lorazepam Injection (Ativan Injection) (09/09/21 21:00) Medications Given in ED Current Medications Medications Dose Ordered Sig/Elsy Route Start Time Stop Time Status Last Admin Dose Admin Lorazepam 1 mg ONCE ONCE IVP 09/09/21 17:30 09/09/21 17:31 DC 09/09/21 17:44 1 MG Ondansetron HCl 4 mg ONCE ONCE IVP 09/09/21 17:45 09/09/21 17:46 DC 09/09/21 17:44 4 MG Promethazine HCl 25 mg ONCE ONCE IVP 09/09/21 20:15 09/09/21 20:16 DC 09/09/21 20:16 25 MG Vital Signs/I&O 09/09/21 17:04 Temp 36.2 Pulse 106 Resp 16 B/P (MAP) 142/90 (107) Capillary Refill : Blood Pressure Mean: 107 ECG Comment Sinus rhythm, 81 bpm, QRS duration 110 MS, QTc 437 MS Departure Communication (PCP) Patient with history of alcohol abuse who presents ED for vomiting, concern for alcohol poisoning and withdrawal. Patient alcohol level positive at 122. Positive marijuana. Normal white blood count. Chronic elevated liver enzymes. Normal kidney function. Patient was slightly dehydrated. Patient was given a liter of fluid. Anion gap of 35. Positive ketones in his blood with ketones in his urine. ABG pH 7.31 with HC03 of 18. Concerning for mild form alcoholic ketoacidosis. Patient with continuous vomiting here without much improvement of Zofran and Phenergan. Was given 2 doses of Ativan with some improvement. Concerning for dehydration requiring IV fluids and admission. Patient was requesting to go to [facility] as he has been there in the past and seeks most of his care at their facility. Patient would likely benefit with IV fluids. Patient requesting detox. Patient was discussed with Dr. Haywood ER physician at [facility] [place] who accepts patient. Patient will be transferred by our transport team. Patient remained slightly tachycardic at 103 bpm. Slightly hypertensive. Patient has no abdominal pain or chest pain. EKG normal sinus rhythm. No history of DT or withdrawal seizures. Patient is stable for transfer Impression Primary Impression: Alcohol abuse with withdrawal Additional Impressions: Nausea and vomiting Alcoholic ketoacidosis Disposition: XF SHT-TRM HOSP Condition: Stable Transfer Transfer Reason: Exceeds level of care Time Spoke to Accepting Phy: 21:05 Transfer Progress Notes Patient was accepted in the ER by Dr. Haywood Transfer Time: 21:05 Transfer Facility: [facility] Method of Transfer: EMS Departure-Patient Inst. Referrals: NO,LOCAL PHYSICIAN (PCP/Family) Primary Care Physician Patient Instructions: ALCOHOL AND SUBSTANCE ABUSE JAZMYNE WEBSTER Sep 09, 2021 17:26
[2021-09-09] MEDS ORDERED: LORazepam INJ 2 MG/ML (ATIVAN) VIAL IVP ONE ×2 (17:30→21:00)
[2021-09-09] MEDS ORDERED: NS IV 1000 ML 1,000 ML IV SCH (17:30)
[2021-09-09] MEDS ORDERED: ONDANSETRON 4 MG/2 ML (SDV) Z0FRAN IVP ONE (17:45)
[2021-09-09 17:53] LABS: EOSINOPHILS % (AUTO) 0 % (0-10); HEMOGLOBIN 14.6 g/dL (13.3-17.7); MONOCYTES # (AUTO) 0.5 10^3/uL (0.0-1.0)
[2021-09-09 17:55] LABS: BASOPHILS % (AUTO) 0 % (0-10); HEMATOCRIT 43 % (40-54); LYMPHOCYTES % (AUTO) 14 % (12-44); MEAN CORPUSCULAR HEMOGLOBIN 35 pg (25-34); MEAN CORPUSCULAR HGB CONC 34 g/dL (32-36); MEAN CORPUSCULAR VOLUME 103 fL (80-99); MEAN PLATELET VOLUME 9.4 fL (9.0-12.2); MONOCYTES % (AUTO) 8 % (0-12); NEUTROPHILS # (AUTO) 5.4 10^3/uL (1.8-7.8); NEUTROPHILS % (AUTO) 78 % (42-75); PLATELET COUNT 127 10^3/uL (130-400); WHITE BLOOD COUNT 6.9 10^3/uL (4.3-11.0)
[2021-09-09 18:08] LABS: ALBUMIN 4.8 GM/DL (3.2-4.5); CHLORIDE 90 MMOL/L (98-107); POTASSIUM 3.9 MMOL/L (3.6-5.0); SODIUM 138 MMOL/L (135-145)
[2021-09-09 18:10] LABS: CALCIUM 10.3 MG/DL (8.5-10.1)
[2021-09-09 18:11] LABS: GLUCOSE 78 MG/DL (70-105); TOTAL PROTEIN 8.2 GM/DL (6.4-8.2)
[2021-09-09 18:12] LABS: CARBON DIOXIDE 13 MMOL/L (21-32)
[2021-09-09 18:13] LABS: BILIRUBIN,TOTAL 1.6 MG/DL (0.1-1.0)
[2021-09-09 18:15] LABS: ALKALINE PHOSPHATASE 90 U/L (40-136); CREATININE SERUM 0.89 MG/DL (0.60-1.30); GFR ESTIMATED 97
[2021-09-09 18:16] LABS: BUN/CREATININE RATIO 11
[2021-09-09 18:16] LABS: BILIRUBIN,URINE 1+ (NEGATIVE); CLARITY,URINE CLEAR; COLOR,URINE YELLOW; GLUCOSE, URINE (UA) NEGATIVE (NEGATIVE); KETONES,URINE 3+ (NEGATIVE); LEUKOCYTE ESTERASE ,URINE NEGATIVE (NEGATIVE); NITRITE,URINE NEGATIVE (NEGATIVE); PH,URINE 5.5 (5-9); PROTEIN,URINE 1+ (NEGATIVE)
[2021-09-09 18:17] LABS: SALICYLATE < 5.0 MG/DL (5.0-20.0)
[2021-09-09 18:18] LABS: ALANINE AMINOTRANSFERASE 70 U/L (0-55)
[2021-09-09 18:19] LABS: LIPASE 60 U/L (8-78)
[2021-09-09 18:21] LABS: ACETAMINOPHEN < 10 UG/ML (10-30)
[2021-09-09 18:26] LABS: BACTERIA,URINE FEW /HPF
[2021-09-09 18:28] LABS: AMPHETAMINE SCREEN, URINE NEGATIVE (NEGATIVE); BARBITURATE SCREEN URINE NEGATIVE (NEGATIVE); BENZODIAZEPINES SCREEN URINE NEGATIVE (NEGATIVE); CANNABINOID SCREEN, URINE POSITIVE (NEGATIVE); COCAINE SCREEN URINE NEGATIVE (NEGATIVE); METHADONE STAT NEGATIVE (NEGATIVE); OPIATE SCREEN URINE NEGATIVE (NEGATIVE); OXYCODONE STAT NEGATIVE (NEGATIVE); PROPOXYPHENE STAT NEGATIVE (NEGATIVE); TRICYCLIC ANTIDEPRESSANTS SCRE NEGATIVE (NEGATIVE)
[2021-09-09 19:47] LABS: ABG BASE EXCESS -6.7 MMOL/L (-2.5-2.5); ABG OXYGEN SATURATION 80 % (94-100); ABG PCO2 37 MMHG (35-45); ABG PO2 55 MMHG (79-93); ABG TCO2 19.5 MMOL/L (21.0-31.0)
[2021-09-09 19:52] LABS: ABG PH 7.31 (7.37-7.43); VENTILATOR NO
[2021-09-09] MEDS ORDERED: PROMETHAZINE INJ 25 MG/ML (PHENERGAN) AMP IVP ONE (20:15)
[2021-09-09 21:32] VITALS: BP 150/70
== END 2021-09-09 21:54 | disposition short-term general hospital (02) ==
LOC: EDUNIT# 16:43 → ER 16:45
DX: F10.229 Alcohol dependence with intoxication, unspecified (principal); E87.2 Acidosis; R94.5 Abnormal results of liver function studies; Z20.822 Contact with and (suspected) exposure to COVID-19; Z28.310 Unvaccinated for COVID-19; Y90.6 Blood alcohol level of 120-199 mg/100 ml
CPT/HCPCS: 36415; 80053; 80306; 80320; 80329; 81000; 82010; 82805; 83690; 83735; 85025; 87636; 93005; 93041